=== PATIENT | female | born 1955 | race Caucasian/White ===

== ENCOUNTER 2023-01-21 17:54 | Emergency (ER) | payer MEDICARE, MEDICAID ==
[~2023-01-21] VITALS: Ht 160 cm; Wt 54.1 kg
[~2023-01-21 17:54] MED LIST: ZOF4T PO
[2023-01-21 18:15] LABS: BASOPHILS # (AUTO) 0.1 X10'3 (0-0.2); BASOPHILS % (AUTO) 0.9 % (0-1); EOSINOPHILS % (AUTO) 0 % (0-6); HEMATOCRIT 47.4 % (35.0-45.0); LYMPHOCYTES # (AUTO) 1.3 X10'3 (1.1-4.8); MEAN CORPUSCULAR HEMOGLOBIN 28.8 PG (27.0-31.0); MEAN CORPUSCULAR HGB CONC 33.9 g/dL (33.0-36.5); MEAN PLATELET VOLUME 7.6 FL (7.4-10.4); MONOCYTES # (AUTO) 0.5 X10'3 (0-0.9); MONOCYTES % (AUTO) 4.4 % (2-12); NEUTROPHILS # (AUTO) 9.6 X10'3 (1.8-7.7); NEUTROPHILS % (AUTO) 83.7 % (42-75); PLATELET COUNT 229 X10'3 (140-440); RED BLOOD COUNT 5.57 X10'6 (4.20-5.60); WHITE BLOOD COUNT 11.4 X10'3 (4.5-11.0)
[2023-01-21 18:29] LABS: ALANINE AMINOTRANSFERASE 28 U/L (12-78); ALBUMIN 3.3 G/DL (3.4-5.0); ALBUMIN/GLOBULIN RATIO 0.7 (1.1-1.5); ALKALINE PHOSPHATASE 120 IU/L (46-116); ANION GAP 9 (8-16); ASPARTATE AMINO TRANSFERASE 29 U/L (10-37); BILIRUBIN,TOTAL 0.4 MG/DL (0.1-1.0); BLOOD UREA NITROGEN 16 MG/DL (7-18); CALCIUM 9.1 MG/DL (8.5-10.1); CHLORIDE 101 MMOL/L (99-107); GLUCOSE 146 MG/DL (70-104); POTASSIUM 4.1 MMOL/L (3.5-5.1); SODIUM 136 MMOL/L (135-145); TOTAL CARBON DIOXIDE 26.1 MMOL/L (24-32); TOTAL PROTEIN 8.2 G/DL (6.4-8.2); eCRCL 46 ML/MIN; eGFR 56 ML/MIN
[2023-01-21 18:38] LABS: PRO BRAIN NATRIURETIC PEPTIDE 568 PG/ML (0-125)
[2023-01-21] MEDS ORDERED: ipratropium/albuterol 3ml nebule NEB ONE (18:50)
[2023-01-21] MEDS ORDERED: methylPREDNISolone sod succ 125mg/2ml vial IV ONE (18:50)
[2023-01-21] MEDS ORDERED: ipratropium/albuterol 3ml nebule NEB SCH (19:00)
[2023-01-21 19:36] VITALS: PULSE 89; RESP 16; O2SAT 0
[2023-01-21 19:43] VITALS: PULSE 87; RESP 16; O2SAT 98
[2023-01-21] MEDS ORDERED: cephalexin 250mg capsule PO ONE (19:55)
[2023-01-21] MEDS ORDERED: PRED10TA23 PO (20:07)
[2023-01-21] MEDS ORDERED: ALBU18HF2 INH (20:07)
[2023-01-21] MEDS ORDERED: CEPH250T PO (20:07)
[2023-01-21 20:17] VITALS: BP 158/83; PULSE 89; RESP 20; TEMP 98; O2SAT 92
== END 2023-01-21 20:26 | disposition home or self-care (01) ==
LOC: ER 17:56
DX: J45.901 Unspecified asthma with (acute) exacerbation (principal)
CPT/HCPCS: 36415; 71045; 80053; 83880; 84484; 85025; 93005; 94640; 96374; 99285; J2930

== ENCOUNTER 2023-02-11 19:34 | Emergency (ER) | payer MEDICARE, MEDICAID ==
[~2023-02-11] VITALS: Ht 160 cm; Wt 55.5 kg
[~2023-02-11 19:34] MED LIST changes: +ALBU18HF2 INH; +PRED10TA23 PO
[2023-02-11 19:48] LABS: BASOPHILS # (AUTO) 0.1 X10'3 (0-0.2); BASOPHILS % (AUTO) 0.6 % (0-1); EOSINOPHILS % (AUTO) 0 % (0-6); HEMOGLOBIN 15.8 g/dl (12.0-16.0); LYMPHOCYTES # (AUTO) 1.6 X10'3 (1.1-4.8); LYMPHOCYTES % (AUTO) 14.4 % (21-51); MEAN CORPUSCULAR HEMOGLOBIN 29.3 PG (27.0-31.0); MEAN CORPUSCULAR HGB CONC 33.7 g/dL (33.0-36.5); MEAN CORPUSCULAR VOLUME 87.1 FL (78-98); MEAN PLATELET VOLUME 7.5 FL (7.4-10.4); MONOCYTES % (AUTO) 8.7 % (2-12); NEUTROPHILS # (AUTO) 8.6 X10'3 (1.8-7.7); NEUTROPHILS % (AUTO) 76.3 % (42-75); PLATELET COUNT 209 X10'3 (140-440); RED BLOOD COUNT 5.39 X10'6 (4.20-5.60); RED CELL DISTRIBUTION WIDTH 14.5 % (11.5-14.5); WHITE BLOOD COUNT 11.2 X10'3 (4.5-11.0)
[2023-02-11 20:03] LABS: ALANINE AMINOTRANSFERASE 36 U/L (12-78); ALBUMIN 2.9 G/DL (3.4-5.0); ALBUMIN/GLOBULIN RATIO 0.6 (1.1-1.5); ALKALINE PHOSPHATASE 171 IU/L (46-116); ANION GAP 8 (8-16); ASPARTATE AMINO TRANSFERASE 26 U/L (10-37); BILIRUBIN,TOTAL 0.5 MG/DL (0.1-1.0); BLOOD UREA NITROGEN 11 MG/DL (7-18); BUN/CREATININE RATIO 11.3 (10.0-20.0); CALCIUM 9.7 MG/DL (8.5-10.1); CHLORIDE 102 MMOL/L (99-107); CREATININE 0.97 MG/DL (0.40-0.90); GLUCOSE 92 MG/DL (70-104); POTASSIUM 3.7 MMOL/L (3.5-5.1); SODIUM 139 MMOL/L (135-145); TOTAL CARBON DIOXIDE 29.5 MMOL/L (24-32); TOTAL PROTEIN 7.6 G/DL (6.4-8.2); eCRCL 48 ML/MIN; eGFR 58 ML/MIN
[2023-02-11 20:10] LABS: PRO BRAIN NATRIURETIC PEPTIDE 721 PG/ML (0-125)
[2023-02-11] MEDS ORDERED: AZIT-103 PO (21:18)
[2023-02-11] MEDS ORDERED: PRED50TA PO (21:18)
[2023-02-11] MEDS ORDERED: LORazepam 1 MG tablet PO ONE (21:35)
[2023-02-11 22:35] VITALS: BP 130/78; PULSE 91; RESP 18; TEMP 97.9; O2SAT 94
== END 2023-02-11 22:38 | disposition home or self-care (01) ==
LOC: ER 19:34
DX: J45.909 Unspecified asthma, uncomplicated (principal)
CPT/HCPCS: 36415; 71045; 80053; 83880; 84484; 85025; 93005; 99285

== ENCOUNTER 2023-04-23 14:15 | Emergency (ER) | payer MEDICARE, MEDICAID ==
[~2023-04-23] VITALS: Ht 165.1 cm; Wt 56.8 kg
[~2023-04-23 14:15] MED LIST changes: -PRED10TA23 PO; +PRED50TA PO
[2023-04-23 16:35] LABS: BASOPHILS # (AUTO) 0.1 X10'3 (0-0.2); BASOPHILS % (AUTO) 0.8 % (0-1); EOSINOPHILS % (AUTO) 0 % (0-6); HEMATOCRIT 44.7 % (35.0-45.0); HEMOGLOBIN 14.9 g/dl (12.0-16.0); LYMPHOCYTES # (AUTO) 1.1 X10'3 (1.1-4.8); LYMPHOCYTES % (AUTO) 9.4 % (21-51); MEAN CORPUSCULAR HGB CONC 33.2 g/dL (33.0-36.5); MEAN CORPUSCULAR VOLUME 84.1 FL (78-98); MEAN PLATELET VOLUME 7.6 FL (7.4-10.4); MONOCYTES # (AUTO) 0.6 X10'3 (0-0.9); MONOCYTES % (AUTO) 5.1 % (2-12); NEUTROPHILS % (AUTO) 84.7 % (42-75); PLATELET COUNT 243 X10'3 (140-440); RED BLOOD COUNT 5.32 X10'6 (4.20-5.60); RED CELL DISTRIBUTION WIDTH 13.5 % (11.5-14.5); WHITE BLOOD COUNT 11.8 X10'3 (4.5-11.0)
[2023-04-23 16:47] LABS: ALBUMIN 3.3 G/DL (3.4-5.0); ANION GAP 8 (8-16); BLOOD UREA NITROGEN 13 MG/DL (7-18); BUN/CREATININE RATIO 14.4 (10.0-20.0); CALCIUM 9.3 MG/DL (8.5-10.1); CHLORIDE 102 MMOL/L (99-107); GLUCOSE 130 MG/DL (70-104); POTASSIUM 3.6 MMOL/L (3.5-5.1); SODIUM 136 MMOL/L (135-145); TOTAL CARBON DIOXIDE 25.9 MMOL/L (24-32); eCRCL 56 ML/MIN; eGFR 63 ML/MIN
[2023-04-23 17:12] LABS: HCG SERUM QL POSITIVE
[2023-04-23 18:15] LABS: BETA HCG,QUANTITATIVE 7 mIU/ml
[2023-04-23] MEDS ORDERED: ipratropium/albuterol 3ml nebule NEB ONE (19:00)
[2023-04-23] MEDS ORDERED: iohexol 350MG/ML 100ml bottle IV ONE (19:10)
[2023-04-23 19:19] VITALS: PULSE 99; RESP 20; O2SAT 99
[2023-04-23 19:28] VITALS: PULSE 97; RESP 18; O2SAT 99
[2023-04-23] MEDS ORDERED: predniSONE 20 mg tablet PO ONE (22:20)
[2023-04-23] MEDS ORDERED: dexamethasone sod phosphate 10mg/ml inj IM STA (22:21)
[2023-04-23] MEDS ORDERED: PRED20TA PO (22:33)
[2023-04-23] MEDS ORDERED: AZIT250T83 PO (22:33)
[2023-04-23 23:03] VITALS: TEMP 98.6
[2023-04-23 23:05] VITALS: BP 138/78; PULSE 76; RESP 18; O2SAT 95
== END 2023-04-23 23:05 | disposition home or self-care (01) ==
LOC: ER 14:15
DX: J44.1 Chronic obstructive pulmonary disease with (acute) exacerbation (principal); R05.9 Cough, unspecified; Z79.899 Other long term (current) drug therapy; Z79.2 Long term (current) use of antibiotics
CPT/HCPCS: 36415; 71045; 71275; 80048; 84484; 84702; 84703; 85025; 85379; 87502; 87503; 93005; 94640; 96372; 99285; J1100; J3490; Q9967; 94760

== ENCOUNTER 2023-06-13 02:53 | Emergency (ER) | payer MEDICARE, MEDICAID ==
[~2023-06-13] VITALS: Ht 160 cm; Wt 56.8 kg
[2023-06-13 03:24] VITALS: TEMP 98.3
[2023-06-13] MEDS: LORazepam 2 mg/ml vial IM ONE (03:55)
[2023-06-13] MEDS ORDERED: LORA-269 PO (04:14)
[2023-06-13 04:24] VITALS: BP 164/95; PULSE 93; RESP 20; O2SAT 97
== END 2023-06-13 05:00 | disposition home or self-care (01) ==
LOC: ER 02:54
DX: F41.0 Panic disorder [episodic paroxysmal anxiety] (principal); J44.9 Chronic obstructive pulmonary disease, unspecified; F41.9 Anxiety disorder, unspecified
CPT/HCPCS: 93005; 96372; 99283; J2060; A4615